=== PATIENT | female | born 1965 | race Caucasian/White ===

== ENCOUNTER 2016-11-14 15:43 | Emergency (ER) | payer OTHER ==
[2016-11-14 15:50] VITALS: BP 121/80
[2016-11-14] MEDS ORDERED: LIDOCAINE 4%/TETRACAINE 0.5%/EPI 0.18% 5 ML TOPICAL SOLN TOP ONE (15:58)
--- NOTE | 2016-11-14 16:03 | ER Document Report ---
ED Wound - General Chief Complaint: Laceration Stated Complaint: LEFT FINGER LACERATION Time Seen by Provider: 11/14/16 15:50 Notes: Patient is a 51-year-old female presented with department complaining of a laceration to her finger measuring about 1.5 cm in the subcutaneous fat. This palpation. Full range of motion. Tetanus up-to-date TRAVEL OUTSIDE OF THE [place] IN LAST 30 DAYS: No - Related Data Allergies/Adverse Reactions: aspirin [Aspirin] Allergy (Severe, Verified 11/14/16 15:49) Anaphylaxis cephalexin monohydrate [From Keflex] Allergy (Severe, Verified 11/14/16 15:49) Anaphylaxis erythromycin base [Erythromycin Base] Allergy (Severe, Verified 11/14/16 15:49) Anaphylaxis guaifenesin [From Entex] Allergy (Severe, Verified 11/14/16 15:49) Anaphylaxis ibuprofen [From Motrin] Allergy (Severe, Verified 11/14/16 15:49) Anaphylaxis morphine [Morphine] Allergy (Severe, Verified 11/14/16 15:49) Anaphylaxis oxycodone HCl [From Percocet] Allergy (Severe, Verified 11/14/16 15:49) Anaphylaxis Penicillins Allergy (Severe, Verified 11/14/16 15:49) Anaphylaxis phenylephrine HCl [From Entex] Allergy (Severe, Verified 11/14/16 15:49) Anaphylaxis phenylpropanolamine [From Entex] Allergy (Severe, Verified 11/14/16 15:49) Anaphylaxis propoxyphene napsylate [From Darvocet-N 100] Allergy (Severe, Verified 11/14/16 15:49) Anaphylaxis pseudoephedrine tannate [From Entex] Allergy (Severe, Verified 11/14/16 15:49) Anaphylaxis Sulfa (Sulfonamide Antibiotics) Allergy (Severe, Verified 11/14/16 15:49) Anaphylaxis tetracycline [Tetracycline] Allergy (Severe, Verified 11/14/16 15:49) Anaphylaxis cefuroxime axetil [From Ceftin] Allergy (Verified 11/14/16 15:49) vomiting, facial swelling mycins Allergy (Uncoded 11/14/16 15:49) Anaphylaxis sulfa Allergy (Uncoded 11/14/16 15:49) Anaphylaxis Past Medical History - Social History Smoking Status: Never Smoker Family History: Reviewed & Not Pertinent Patient has suicidal ideation: No Patient has homicidal ideation: No - Past Medical History Cardiac Medical History: Denies: Hx Coronary Artery Disease, Hx Heart Attack, Hx Hypertension Pulmonary Medical History: Denies: Hx Asthma, Hx Bronchitis, Hx COPD, Hx Pneumonia, Hx Tuberculosis Neurological Medical History: Denies: Hx Cerebrovascular Accident, Hx Seizures Endocrine Medical History: Reports: Hx Diabetes Mellitus Type 2 Renal/ Medical History: Denies: Hx Peritoneal Dialysis Malignancy Medical History: Reports: Hx Breast Cancer, Hx Cervical Cancer, Hx Colorectal Cancer Musculoskeltal Medical History: Denies Hx Arthritis Past Surgical History: Reports: Hx Appendectomy, Hx Cardiac Surgery - pacemaker left chest, Hx Cholecystectomy, Hx Genitourinary Surgery - partial cervix removal, Hx Mastectomy - Lt partial, Hx Orthopedic Surgery - neck surgery, Hx Pacemaker - states monitoring pacemaker for "white spells" . Denies: Hx Hysterectomy - Immunizations Immunizations up to date: Yes Hx Diphtheria, Pertussis, Tetanus Vaccination: Yes Review of Systems - Review of Systems Constitutional: No symptoms reported Skin: See HPI -: Yes All other systems reviewed and negative Physical Exam - Vital signs Vitals: Temp Pulse Resp BP Pulse Ox 98.1 F 93 16 121/80 96 11/14/16 15:47 11/14/16 15:47 11/14/16 15:47 11/14/16 15:47 11/14/16 15:47 - Cardiovascular Pulses: Normal: Carotid Normal capillary refill: Yes - Extremities Hand: Nontender, Laceration, Other - ROM intact, strength 5 out of 5. No: Tendon deficit - Skin Skin Temperature: Warm Skin Moisture: Dry Skin Color: Normal Skin Turgor: Elastic Skin irregularity: Laceration - 1.5cm left index finger over PIP dorsal aspect Course - Re-evaluation Re-evalutation: 11/14/16 20:24 Patient irrigated with Betadine and saline, closed with 2 5-0 nylon sutures at the bedside. Dry sterile dressing applied. Patient stable for discharge home and follow-up with primary care in 8-10 days for suture removal - Vital Signs Vital signs: Temp Pulse Resp BP Pulse Ox 98.1 F 93 16 121/80 96 11/14/16 15:47 11/14/16 15:47 11/14/16 15:47 11/14/16 15:47 11/14/16 15:47 Procedures - Laceration/Wound Repair Left Hand Wound length (cm): 1.5 Wound's Depth, Shape: Linear Laceration pre-procedure: Sterile PPE donned, Betadine prep applied, Sterile drapes applied Anesthetic type: Other - LET Wound explored: Clean, No foreign body removed Wound Debrided: Minimal Wound Repaired With: Sutures Suture Size/Type: 5:0, Nylon Number of Sutures: 2 Layer Closure?: No Post-procedure wound care: Sterile dressing applied Post-procedure NV exam normal: Yes Complications: No Discharge - Discharge Clinical Impression: Laceration Condition: Good Disposition: HOME, SELF-CARE Instructions: Antibiotic Ointment Protection ([facility]), Laceration Care ([facility]), Soap Cleansing ([facility]) Additional Instructions: Please follow up with your primary care provider to have your sutures removed in 8-10 days. Referrals: IVON PRESSLEY FNP-C [[facility] STAFF] - Follow up as needed
== END 2016-11-14 16:45 | disposition home or self-care (01) ==
LOC: ER 15:43
PROC: 0HQGXZZ Repair Left Hand Skin, External Approach (ICD-10-PCS; principal; 2016-11-14)
DX: S61.211A Laceration without foreign body of left index finger without damage to nail, initial encounter (principal); W27.8XXA Contact with other nonpowered hand tool, initial encounter; Y93.H9 Activity, other involving exterior property and land maintenance, building and construction; E11.9 Type 2 diabetes mellitus without complications; Z88.6 Allergy status to analgesic agent; Z88.1 Allergy status to other antibiotic agents; Z88.5 Allergy status to narcotic agent; Z88.0 Allergy status to penicillin; Z88.8 Allergy status to other drugs, medicaments and biological substances; Z88.2 Allergy status to sulfonamides; Z85.3 Personal history of malignant neoplasm of breast; Z85.41 Personal history of malignant neoplasm of cervix uteri; Z85.048 Personal history of other malignant neoplasm of rectum, rectosigmoid junction, and anus; Z95.0 Presence of cardiac pacemaker
CPT/HCPCS: 12001; 99282; J3490

== ENCOUNTER 2019-07-27 09:03 | Outpatient (CLI) | payer OTHER ==
[~2019-07-27 09:03] MED LIST: ACETAMINOPHEN 325 MG TABLET PO PRN; DEXTROSE 5%-WATER 250 ML IV PRN; DIPHENHYDRAMINE HCL 50 MG/ML VIAL IV PRN; IMMUNE GLOB,GAM CAPRYLATE(IGG) 20 GM, IMMUNE GLOB,GAM CAPRYLATE(IGG) 10 GM in CONTAINER... IV PRN
[2019-07-27 09:18] VITALS: BP 98/55
[2019-07-27] MEDS ORDERED: ONDANSETRON HCL/PF 16 MG in NORMAL SALINE 50 ML IV PRN (09:30)
[2019-07-27] MEDS ORDERED: FAMOTIDINE/PF 20 MG in NORMAL SALINE 50 ML IV PRN (09:32)
== END 2019-07-27 14:22 | disposition home or self-care (01) ==
LOC: II 09:03 → 5TH 09:08 → II 14:22
PROVIDERS: ATTEND Internal Medicine
DX: D80.1 Nonfamilial hypogammaglobulinemia (principal)
CPT/HCPCS: 96365; 96366; 96367; 96375; J1561 ×2; J1200; J3490; J2405; S0028; J1642

== ENCOUNTER 2019-08-24 09:02 | Outpatient (CLI) | payer OTHER ==
[~2019-08-24 09:02] MED LIST changes: +CONTAINER EMPTY IV PRN; +FAMOTIDINE INJ/PF 20 MG/2 ML SDV IV PRN; +FAMOTIDINE/PF 20 MG in NORMAL SALINE 50 ML IV PRN; +IMMUNE GLOB GAM CAPRYLATE IV PRN; -IMMUNE GLOB,GAM CAPRYLATE(IGG) 20 GM, IMMUNE GLOB,GAM CAPRYLATE(IGG) 10 GM in CONTAINER... IV PRN; +ONDANSETRON HCL/PF 16 MG in NORMAL SALINE 50 ML IV PRN
[2019-08-24 09:27] VITALS: BP 112/49
[2019-08-25] MEDS ORDERED: IMMUNE GLOB,GAM CAPRYLATE(IGG) 10 GM, IMMUNE GLOB,GAM CAPRYLATE(IGG) 20 GM in CONTAINER... IV ONE (10:00)
== END 2019-08-24 13:00 | disposition home or self-care (01) ==
LOC: II 09:02 → 5TH 09:05 → II 13:00
PROVIDERS: ATTEND Internal Medicine
DX: D80.1 Nonfamilial hypogammaglobulinemia (principal)
CPT/HCPCS: 96365; 96366; 96367; 96375; J1200; J2405; S0028; J1642; 96361; J1561; J3490